=== PATIENT | male | born 1965 | race Caucasian/White ===

== ENCOUNTER 2019-11-15 07:20 | Day surgery (SDC) | payer OTHER ==
[~2019-11-15] VITALS: Ht 167.6 cm; Wt 104.3 kg
[~2019-11-15 07:20] MED LIST: ASPI81TA85 PO; CITA10TA5 PO; PRAV10TA3 PO; TELM1TAB35 PO; [UNRECOGNIZED DRUG - CODE] PO
[2019-11-15] MEDS ORDERED: propofoL 200 MG/20 ML VIAL As Ordered ONE ×2 (08:31→08:56)
--- NOTE | 2019-11-15 08:52 | ROOR ---
Patient Name: Kervin Arteaga Procedure Date: 11/15/2019 8:28 AM Date of : 1965 Age: 54 [facility] Gender[facility] Note Status: Finalized Procedure: Colonoscopy Indications: Screening for colorectal malignant neoplasm Providers: Mars CONWAY MD Referring MD: Niki Orozco Md Requesting Provider: Medicines: Monitored Anesthesia Care Complications: No immediate complications. Procedure: Pre-Anesthesia Assessment: - The heart rate, respiratory rate, oxygen saturations, blood pressure, adequacy of pulmonary ventilation, and response to care were monitored throughout the procedure. The Colonoscope was introduced through the anus and advanced to the terminal ileum, with identification of the appendiceal orifice and IC valve. The colonoscopy was performed without difficulty. The patient tolerated the procedure well. The quality of the bowel preparation was good. Findings: The perianal and digital rectal examinations were normal. Internal hemorrhoids were found during retroflexion. The hemorrhoids were moderate. The entire examined colon appeared normal on direct and retroflexion views. Impression: - Internal hemorrhoids. - Mild sigmoid diverticulosis. - The entire colon is normal on direct and retroflexion views. - No specimens collected. Recommendation: - Repeat colonoscopy in 10 years for screening purposes. Mars Conway MD Mars CONWAY MD 11/15/2019 8:51:47 AM Electronically signed by Mars CONWAY MD Number of Addenda: 0 Note Initiated On: 11/15/2019 8:28 AM Estimated Blood Loss: Estimated blood loss: none.
[2019-11-15] MEDS ORDERED: NS 1,000 ML IV ONE (09:00)
[2019-11-15 09:10] VITALS: BP 158/85
== END 2019-11-15 09:20 | disposition home or self-care (01) ==
LOC: M OPP 07:20
PROVIDERS: ATTEND Internal Medicine Gastroenterology
DX: Z12.11 Encounter for screening for malignant neoplasm of colon (principal); K64.8 Other hemorrhoids; I10 Essential (primary) hypertension; E78.00 Pure hypercholesterolemia, unspecified; K21.9 Gastro-esophageal reflux disease without esophagitis; E78.5 Hyperlipidemia, unspecified; F41.9 Anxiety disorder, unspecified; Z79.82 Long term (current) use of aspirin; Z79.899 Other long term (current) drug therapy; Z80.42 Family history of malignant neoplasm of prostate; Z82.49 Family history of ischemic heart disease and other diseases of the circulatory system

== ENCOUNTER → 2021-03-11 | Outpatient (CLI) | payer OTHER ==
[~2021-03-11] MED LIST changes: -ASPI81TA85 PO; +ASPI81TA86 PO
--- NOTE | 2021-03-12 14:15 | SLEEPHOME ---
DATE: 03/11/2021 ORDERED BY: Chantal Khalil Diagnostic home sleep testing was performed due to concern for the obstructive sleep apnea syndrome in this patient with a history of excessive somnolence and nonrestorative sleep. For testing, a nocturnal T3 respiratory monitoring device was used. Continuous record was made of pulse, oxygen saturation, air flow, chest and abdominal strain, and body position. There was 9 hours and 58 minutes of data reviewed. There was 8 hours and 20 minutes marked as time in bed. During the interval marked time in bed, there were 465 respiratory events identified of 10 seconds in duration or greater for a respiratory event index of 55.8. The events were primarily obstructive. There were 26 mixed and central apneas seen. Baseline pulse rate 64. Pulse rate ranged 53-187. Baseline saturation 93%. Saturations fell to 79%, and testing was performed in both the supine and nonsupine positions. IMPRESSION: Abnormal home sleep testing with repetitive respiratory events and oxygen desaturations to 79% with a respiratory event index of 55.8 is consistent with the obstructive sleep apnea syndrome. RECOMMENDATION: The patient should be encouraged to undergo formal sleep evaluation.
== END ==
LOC: M SLEEP HO 11:34
PROVIDERS: ATTEND Nurse Practitioner Family
DX: R06.83 Snoring (principal)